=== PATIENT | female | born 1935 | race Two or more races ===

== ENCOUNTER 2019-11-03 22:34 | Inpatient (IN) | payer OTHER ==
[~2019-11-03] VITALS: Ht 154.9 cm; Wt 76.2 kg
[~2019-11-03 22:34] MED LIST: APRESOLINE 10MG10 MG PO; ASA-EC81 MG PO; Asa-EC 81MG TAB PO; CIPRO500 MG PO; Cozaar PO; FLUCONAZOLE100 MG PO; HUMULIN 70/30 V10 ML; HYZAAR 100/25 T1 TAB; Hyzaar 100-25 Tablet PO; LINZESS145 MCG PO; LIPITOR20 MG PO; LOPRESSOR 25 MG PO; NORVASC 10 MG TAB PO; NORVASC 5MG TAB PO; NORVASC5 MG PO; PLAVIX 75MG PO; PLAVIX75 MG PO; ZOCOR PO; [UNRECOGNIZED DRUG - OTHER] PO
[2019-11-27] MEDS ORDERED: METOPROLOL TART50 MG PO ×2 (12:00→15:07)
[2019-11-27] MEDS ORDERED: LOSARTAN POTASS50 MG PO (12:00)
[2019-11-27] MEDS ORDERED: FLUCONAZOLE100 MG PO (12:00)
[2019-11-27] MEDS ORDERED: METOPROLOL TART25 MG PO (15:07)
== END 2019-11-27 20:36 | disposition home or self-care (01) | DRG 698 ==
LOC: ER 22:34 → MEDJ 11-04 11:43 → SEC-K 11-04 11:43 → MEDJ 11-04 17:10
PROVIDERS: ADMIT Internal Medicine
PROC: 0T9B70Z Drainage of Bladder with Drainage Device, Via Natural or Artificial Opening (ICD-10-PCS; 2019-11-04)
PROC: 0HBQXZZ Excision of Finger Nail, External Approach (ICD-10-PCS; principal; 2019-11-05)
PROC: 4A12X4Z Monitoring of Cardiac Electrical Activity, External Approach (ICD-10-PCS; 2019-11-08)
PROC: B246ZZZ Ultrasonography of Right and Left Heart (ICD-10-PCS; 2019-11-10)
PROC: BB24ZZZ Computerized Tomography (CT Scan) of Bilateral Lungs (ICD-10-PCS; 2019-11-12)
PROC: 3E0436Z Introduction of Nutritional Substance into Central Vein, Percutaneous Approach (ICD-10-PCS; 2019-11-17)
DX: E11.22 Type 2 diabetes mellitus with diabetic chronic kidney disease (principal); A41.9 Sepsis, unspecified organism; J69.0 Pneumonitis due to inhalation of food and vomit; I50.21 Acute systolic (congestive) heart failure; E87.0 Hyperosmolality and hypernatremia; I96 Gangrene, not elsewhere classified; T17.898A Other foreign object in other parts of respiratory tract causing other injury, initial encounter; I13.0 Hypertensive heart and chronic kidney disease with heart failure and stage 1 through stage 4 chronic kidney disease, or unspecified chronic kidney disease; E44.0 Moderate protein-calorie malnutrition; J90 Pleural effusion, not elsewhere classified; B37.49 Other urogenital candidiasis; M46.28 Osteomyelitis of vertebra, sacral and sacrococcygeal region; N17.8 Other acute kidney failure; E11.65 Type 2 diabetes mellitus with hyperglycemia; E86.0 Dehydration; E87.6 Hypokalemia; D63.1 Anemia in chronic kidney disease; I12.9 Hypertensive chronic kidney disease with stage 1 through stage 4 chronic kidney disease, or unspecified chronic kidney disease; I48.0 Paroxysmal atrial fibrillation; I69.391 Dysphagia following cerebral infarction; I08.3 Combined rheumatic disorders of mitral, aortic and tricuspid valves; M20.091 Other deformity of right finger(s); N18.2 Chronic kidney disease, stage 2 (mild); S61.334A Puncture wound without foreign body of right ring finger with damage to nail, initial encounter; S61.342A Puncture wound with foreign body of right middle finger with damage to nail, initial encounter; R13.19 Other dysphagia; R31.0 Gross hematuria; Z53.1 Procedure and treatment not carried out because of patient's decision for reasons of belief and group pressure; Z74.01 Bed confinement status; Z79.4 Long term (current) use of insulin; Z79.01 Long term (current) use of anticoagulants